=== PATIENT | female | born 1975 | race African-American/Black ===

== ENCOUNTER → 2017-02-07 | Outpatient (CLI) | payer OTHER ==
[~2017-02-07] MED LIST: COLACE PO; PYRIDIUM100 MG PO; ZOFRANODT PO
== END | disposition home or self-care (01) ==
LOC: SLAB 08:31
DX: R26.2 Difficulty in walking, not elsewhere classified (principal); M79.609 Pain in unspecified limb
CPT/HCPCS: 36415; 84550